=== PATIENT | female | born 1980 | race Caucasian/White ===

== ENCOUNTER 2024-07-01 07:29 | Emergency (ER) | payer OTHER ==
[2024-07-01 08:08] LABS: Absolute Basophils 0.1 K/uL (0-0.5); Absolute Eosinophils 0.1 K/uL (0-0.5); Absolute Lymphocytes (CBC) 2.1 K/uL (0.7-4.9); Absolute Monocytes 0.7 K/uL (0.1-1.3); Absolute Neutrophil 3.3 K/uL (1.8-8.0); Basophils % 0.8 % (0-1.3); Eosinophils % 1.1 % (0-4.4); Hematocrit 40.3 % (36.0-45.0); Hemoglobin 13.7 g/dL (12.0-15.0); Lymphocytes % 33.5 % (15.3-44.8); MCH 32.2 pg (27.0-35.0); MCHC 33.9 g/dL (32.0-36.0); MCV 94.9 fL (80-100); MPV 7.1 fL (7.6-11.3); Monocytes % 11.2 % (3.3-12.3); Neutrophils % 53.4 % (41.7-73.7); Nucleated Red Blood Cells % 0.1 % (0-0); Platelets 263 thou/uL (152-406); RBC Red Blood Cell Count 4.25 M/uL (3.86-4.86)
[2024-07-01 08:15] LABS: Specific Gravity 1.008 (1.005-1.030)
[2024-07-01 08:16] LABS: Specific Gravity 1.008 (1.005-1.030); Sqamous Epithelial None Seen /HPF (None Seen); Urine Bacteria None Seen /HPF (<20); Urine Bilirubin NEGATIVE (Negative); Urine Blood Negative (Negative); Urine Clarity Clear (Clear); Urine Color Colorless (Yellow); Urine Culture Reflex Order NOT NEEDED; Urine Glucose NEGATIVE (Negative); Urine Ketones NEGATIVE (Negative); Urine Micro Reflex YN NO BILL MICROSCOPIC; Urine Nitrite NEGATIVE (Negative); Urine Protein NEGATIVE (Negative); Urine RBC <5 /HPF (None Seen); Urine Urobilinogen Normal (Normal); Urine WBC <5 /HPF (<5); Urine pH 5.5 (5.0-7.0)
[2024-07-01 08:31] LABS: Albumin 3.8 g/dL (3.4-5.0); Anion Gap 7.7 mEq/L (5.0-15.0); Bilirubin Direct 0.2 mg/dL (0-0.2); Bilirubin Indirect, Calculated 0.6 mg/dL (0.2-0.8); Bilirubin Total 0.8 mg/dL (0.2-1.0); Globulin 3.9 g/dL (2.3-3.5); Potassium 3.7 mEq/L (3.5-5.1); Protein, Total 7.7 g/dL (6.4-8.2); Troponin High Sensitivity 3.3 pg/mL (<58.9)
--- NOTE | 2024-07-01 08:45 | RAD REPORT ---
EXAM DESCRIPTION: CT - Chest Abdomen Pelvis W Cont - 07/01/2024 8:25 am CLINICAL HISTORY: Chest and abdominal pain COMPARISON: none TECHNIQUE: Computed axial tomography of the chest, abdomen and pelvis was obtained. 100 cc Isovue-30 0 was administered intravenously. Oral contrast was not requested. This limits evaluation of bowel. All CT scans are performed using dose optimization technique as appropriate and may include automated exposure control or mA/KV adjustment according to patient size. FINDINGS: The lungs are clear No mediastinal or hilar lymphadenopathy. No pleural effusion. No pericardial effusion. Liver, spleen, pancreas, adrenals and kidneys are unremarkable No evidence of diverticulitis Abnormal appendix is not seen. No adnexal mass Tubal ligation coils are present IMPRESSION: No acute abnormality is displayed
[2024-07-01 08:50] LABS: PT Prothrombin Time 12.8 SECONDS (9.4-12.5); Protime INR 1.15
--- NOTE | 2024-07-01 08:50 | RAD REPORT ---
EXAM DESCRIPTION: Yoon Single View07/01/2024 8:04 am CLINICAL HISTORY: Chest pain COMPARISON: none FINDINGS: The lungs appear clear of acute infiltrate. The heart is normal size IMPRESSION: No acute abnormalities displayed
--- NOTE | 2024-07-01 08:57 | EDPHYS ---
Physician Documentation [facility] Name: Nadia Ortiz Age: 43 yrs Sex: Female : 1980 Arrival Date: 07/01/2024 Time: 07:29 Bed 13 Private MD: ED Physician Robe Cruz HPI: 07/01 07:58 This 43 yrs old Female presents to ER via Ambulatory with complaints of Chest Pressure, sp3 Back Pain. 07:58 43-year-old female with history of hyperlipidemia, hypothyroidism presents with a sp3 greater than 24-hour history of substernal chest pain radiating to the back and epigastric pain. Symptoms have led to increased belching. Patient states that this has not happened to her before. Positive family history of CABG and heart disease in the 50s on paternal side. Review of systems negative for fever, neck pain, shortness of breath, lower abdominal pain, lower back pain, syncope, near syncope, bleeding, diarrhea, vomiting, or any other signs or symptoms on ROS at this time. Patient is not on oral contraception, does not smoke, and has not had any prolonged immobilization or travel.. 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 - Infectious Disease History:: Denies. - Social history:: Smoking status: Patient denies any tobacco usage or history of. ROS: 08:08 Constitutional: Negative for fever, chills, and weight loss, Eyes: Negative for injury, sp3 pain, redness, and discharge, ENT: Negative for injury, pain, and discharge, Neck: Negative for injury, pain, and swelling, Respiratory: Negative for shortness of breath, cough, wheezing, and pleuritic chest pain, Back: Negative for injury and pain, : Negative for injury, bleeding, discharge, and swelling, MS/Extremity: Negative for injury and deformity, Skin: Negative for injury, rash, and discoloration, Neuro: Negative for headache, weakness, numbness, tingling, and seizure, Psych: Negative for depression, anxiety, suicide ideation, homicidal ideation, and hallucinations, Allergy/Immunology: Negative for hives, rash, and allergies, Endocrine: Negative for neck swelling, polydipsia, polyuria, polyphagia, and marked weight changes, 08:08 All other systems are negative, Exam: 08:11 Constitutional: This is a well developed, well nourished patient who is awake, alert, sp3 and in no acute distress. Head/Face: Normocephalic, atraumatic. Eyes: Pupils equal round and reactive to light, extra-ocular motions intact. Lids and lashes normal. Conjunctiva and sclera are non-icteric and not injected. Cornea within normal limits. Periorbital areas with no swelling, redness, or edema. ENT: Nares patent. No nasal discharge, no septal abnormalities noted. External auditory canals are clear. Oropharynx with no redness, swelling, or masses, exudates, or evidence of obstruction, uvula midline. Mucous membranes moist. Neck: Trachea midline, no thyromegaly or masses palpated, and no cervical lymphadenopathy. Supple, full range of motion without nuchal rigidity, or vertebral point tenderness. No Meningismus. Chest/axilla: Normal chest wall appearance and motion. Nontender with no deformity. No lesions are appreciated. Cardiovascular: Regular rate and rhythm with a normal S1 and S2. No gallops, murmurs, or rubs. Normal PMI, no JVD. No pulse deficits. Respiratory: Lungs have equal breath sounds bilaterally, clear to auscultation and percussion. No rales, rhonchi or wheezes noted. No increased work of breathing, no retractions or nasal flaring. Back: No spinal tenderness. No costovertebral tenderness. Full range of motion. Skin: Warm, dry with normal turgor. Normal color with no rashes, no lesions, and no evidence of cellulitis. MS/ Extremity: Pulses equal, no cyanosis. Neurovascular intact. Full, normal range of motion. Neuro: Awake and alert, GCS 15, oriented to person, place, time, and situation. Cranial nerves II-XII grossly intact. Motor strength 5/5 in all extremities. Sensory grossly intact. Cerebellar exam normal. Normal gait. Psych: Awake, alert, with orientation to person, place and time. Behavior, mood, and affect are within normal limits. 08:11 Abdomen/GI: Epigastric pain to palpation which also radiates up to the chest., 08:18 ECG was reviewed by the Attending Physician. EKG demonstrates normal sinus rhythm at 65 sp3 bpm with normal intervals, normal QRS, normal axis, nonspecific diffuse ST's ST changes without evidence of acute ischemia. Vital Signs: 07:51 Resp 16; Weight 88.45 kg; Height 5 ft. 4 in. ; iw 08:09 BP 117 / 65; Pulse 67; Resp 16 S; Temp 98(O); Pulse Ox 99% on R/A; kc6 08:59 BP 113 / 84; Pulse 64; Resp 16 S; Pulse Ox 100% on R/A; kc6 07:51 Body Mass Index 33.47 (88.45 kg, 162.56 cm) iw MDM: 07:35 Patient medically screened. sp3 08:12 Data reviewed: vital signs, nurses notes, lab test result(s), EKG, radiologic studies. sp3 ED course: 43-year-old female with PMH above now with epigastric pain and chest pain. Differential diagnosis is broad and includes ACS, vascular disease, biliary pathology, pancreatitis, gastritis, reflux, peptic ulcer disease, UTI/pyelonephritis spectrum, kidney stone, among others. Workup will include CT scan of the chest abdomen pelvis with IV contrast, laboratory values, urinalysis, EKG and general supportive care with disposition pending workup and patient course.. 08:54 ED course: Full workup negative including CT scan of the chest abdomen pelvis, all sp3 laboratory values, urine analysis. Symptoms likely due to GI/stomach pathology. Patient is already on Nexium OTC. Will switch to Protonix 40 mg daily coupled with Pepcid until she can follow-up with GI.. 07/01 07:40 Order name: Basic Metabolic Panel; Complete Time: 08:53 sp3 07/01 07:40 Order name: CBC with Diff; Complete Time: 08:53 sp3 07/01 07:40 Order name: LFT's; Complete Time: 08:53 sp3 07/01 07:40 Order name: Magnesium; Complete Time: 08:53 sp3 07/01 07:40 Order name: NT PRO-BNP; Complete Time: 08:53 sp3 07/01 07:40 Order name: PT-INR; Complete Time: 08:53 sp3 07/01 07:40 Order name: Troponin HS; Complete Time: 08:53 sp3 07/01 07:52 Order name: Lipase; Complete Time: 08:53 sp3 07/01 07:52 Order name: UAM; Complete Time: 08:53 sp3 07/01 07:52 Order name: Test, Urine; Complete Time: 08:53 sp3 07/01 07:40 Order name: XRAY Chest (1 view); Complete Time: 08:53 sp3 07/01 07:52 Order name: CT Chest, Abdomen, Pelvis - W/Contrast; Complete Time: 08:53 sp3 07/01 07:40 Order name: Cardiac monitoring; Complete Time: 08:08 sp3 07/01 07:40 Order name: EKG - Nurse/Tech; Complete Time: 08:08 sp3 07/01 07:40 Order name: IV Saline Lock; Complete Time: 08:08 sp3 07/01 07:40 Order name: Labs collected and sent; Complete Time: 08:08 sp3 07/01 07:40 Order name: O2 Per Protocol; Complete Time: 07:43 sp3 07/01 07:40 Order name: O2 Sat Monitoring; Complete Time: 07:43 sp3 Administered Medications: No medications were administered Disposition Summary: 07/01/24 08:56 Discharge Ordered Notes: Location: Home sp3 Condition: Stable sp3 Diagnosis - Abdominal pain, gastritis sp3 Followup: sp3 - With: Private Physician - When: Upon discharge from the Emergency Department - Reason: Continuance of care Discharge Instructions: - Discharge Summary Sheet sp3 - Abdominal Pain, Adult sp3 Forms: - Medication Reconciliation Form sp3 - Antibiotic Education sp3 - Prescription Opioid Use sp3 - Patient Portal Instructions sp3 - Leadership Thank You Letter sp3 Prescriptions: - Pepcid 20 mg Oral Tablet - take 1 tablet ORAL route every 12 hours for 10 days; 20 tablet; Refills: 0, sp3 Product Selection Permitted - Protonix 40 mg Oral Tablet - take 1 tablet ORAL route once daily; 30 tablet; Refills: 0, Product Selection sp3 Permitted Signatures: Dispatcher [employer] Jeni Gutierrez RN RN iw Patel, Setul, MD MD sp3 Corrections: (The following items were deleted from the chart) 07:41 07:41 BASIC METABOLIC PANEL+C.LAB.BRZ ordered. EDMS EDMS 07:41 07:41 CBC+H.LAB.BRZ ordered. EDMS EDMS 07:41 07:41 HEPATIC FUNCTION+C.LAB.BRZ ordered. EDMS EDMS 07:41 07:41 MAGNESIUM+C.LAB.BRZ ordered. EDMS EDMS 07:41 07:41 PROBNP+C.LAB.BRZ ordered. EDMS EDMS 07:41 07:41 PROTIME (+INR)+COAG.LAB.BRZ ordered. EDMS EDMS 07:41 07:41 Troponin High Sensitivity+C.LAB.BRZ ordered. EDMS EDMS 07:41 07:41 Chest Single View+RAD.RAD.BRZ ordered. EDMS EDMS 08:56 08:54 ED course: Full workup negative including CT scan of the chest abdomen pelvis, sp3 all laboratory values, urine analysis. Symptoms likely due to GI/stomach pathology. Patient is already on Nexium OTC. Will recommend additional Pepcid and follow-up with GI for repeat endoscopy as needed.. sp3
--- NOTE | 2024-07-01 08:57 | ER ---
Nurse's Notes [facility] Name: Nadia Ortiz Age: 43 yrs Sex: Female : 1980 Arrival Date: 07/01/2024 Time: 07:29 Bed 13 Private MD: Diagnosis: Abdominal pain, gastritis Presentation: 07/01 07:48 Chief complaint: Patient states: yesterday she felt a thumping sensation in her chest iw that lasted just a few minutes, she also felt clammy and sweaty, today she is still feeling pressure in her chest and gas , feels pressure in her upper back. Coronavirus screen: At this time, the client does not indicate any symptoms associated with coronavirus-19. Ebola Screen: No symptoms or risks identified at this time. Initial Sepsis Screen: Does the patient meet any 2 criteria? No. Patient's initial sepsis screen is negative. Does the patient have a suspected source of infection? No. Patient's initial sepsis screen is negative. Risk Assessment: Do you want to hurt yourself or someone else? Patient reports no desire to harm self or others. Onset of symptoms was June 30, 2024. 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 - Infectious Disease History:: Denies. - Social history:: Smoking status: Patient denies any tobacco usage or history of. Screenin:09 [facility] ED Fall Risk Assessment (Adult) History of falling in the last 3 months, kc6 including since admission No falls in past 3 months (0 pts) Confusion or Disorientation No (0 pts) Intoxicated or Sedated No (0 pts) Impaired Gait No (0 pts) Mobility Assist Device Used No (0 pt) Altered Elimination No (0 pt) Score/Fall Risk Level 0 - 2 = Low Risk. Abuse screen: Denies threats or abuse. Denies injuries from another. Nutritional screening: No deficits noted. Tuberculosis screening: No symptoms or risk factors identified. Assessment: 08:10 General: Appears in no apparent distress. comfortable, well groomed, well developed, kc6 Behavior is calm, cooperative, appropriate for age. Pain: Complains of pain in back and chest Pain does not radiate. Quality of pain is described as pressure, Pain began suddenly, Is intermittent. Neuro: Level of Consciousness is awake, alert, obeys commands, Oriented to person, place, time, situation, Appropriate for age. Cardiovascular: Reports chest pain, Heart tones S1 S2 present Capillary refill < 3 seconds Rhythm is sinus rhythm. Respiratory: Airway is patent Trachea midline Respiratory effort is even, unlabored, Respiratory pattern is regular, symmetrical. GI: Abdomen is flat, non-distended, Abd is soft X 4 quads Abdomen is tender to palpation in epigastric area and left upper quadrant Patient currently denies diarrhea, nausea, vomiting. : No signs and/or symptoms were reported regarding the genitourinary system. Urine is clear. EENT: No signs and/or symptoms were reported regarding the EENT system. Derm: No signs and/or symptoms reported regarding the dermatologic system. Skin is intact, is healthy with good turgor, Skin is pink, warm \T\ dry. Musculoskeletal: No signs and/or symptoms reported regarding the musculoskeletal system. Circulation, motion, and sensation intact. Capillary refill < 3 seconds, Range of motion: intact in all extremities. 08:59 Reassessment: Patient appears in no apparent distress at this time. No changes from kc6 previously documented assessment. Patient and/or family updated on plan of care and expected duration. Pain level reassessed. Patient is alert, oriented x 3, equal unlabored respirations, skin warm/dry/pink. Vital Signs: 07:51 Resp 16; Weight 88.45 kg; Height 5 ft. 4 in. ; iw 08:09 BP 117 / 65; Pulse 67; Resp 16 S; Temp 98(O); Pulse Ox 99% on R/A; kc6 08:59 BP 113 / 84; Pulse 64; Resp 16 S; Pulse Ox 100% on R/A; kc6 07:51 Body Mass Index 33.47 (88.45 kg, 162.56 cm) iw ED Course: 07:33 Patient arrived in ED. ra3 07:34 Robe Cruz MD is Attending Physician. sp3 07:37 Ashli Castellano RN is Primary Nurse. kc6 07:50 Triage completed. iw 07:51 Arm band placed on. iw 08:06 XRAY Chest (1 view) In Process Unspecified. EDMS 08:09 Patient has correct armband on for positive identification. Bed in low position. Call kc6 light in reach. Side rails up X 1. environmental monitoring technician on. Pulse ox on. NIBP on. Door closed. Noise minimized. Lights dimmed. Pillow given. 08:09 Inserted saline lock: 20 gauge in right antecubital area, using aseptic technique. kc6 Blood collected. Flushed with 10 mL NS. 08:27 CT Chest, Abdomen, Pelvis - W/Contrast In Process Unspecified. EDMS 09:08 No provider procedures requiring assistance completed. IV discontinued, intact, kc6 bleeding controlled, No redness/swelling at site. Pressure dressing applied. Patient maintains SpO2 saturation greater than 95% on room air. Administered Medications: No medications were administered Medication: 09:08 VIS not applicable for this client. kc6 Outcome: 08:56 Discharge ordered by . ana 09:08 Discharged to home ambulatory, kc6 09:08 Condition: good 09:08 Discharge instructions given to patient, Instructed on discharge instructions, follow up and referral plans. medication usage, Demonstrated understanding of instructions, follow-up care, medications, Prescriptions given X 2, 09:08 Patient left the ED. kc6 Signatures: Dispatcher [employer] Jeni Gutierrez, RN Robe Thakkar MD MD sp3 Ashli Castellano RN RN kc6 Lilo Taylor ra3
[2024-07-01 09:28] VITALS: TEMP 98
[2024-07-01 09:29] VITALS: BP 113/84; O2SAT 100
--- OUTSIDE RECORDS SUMMARY | 2024-07-02 09:22 | XMS REPORT | Continuity of Care Document ---
Author Name Unknown Address [address] [facility] [place] [address] [facility] Address [address] [facility] [address] [place] [address] Care Team Providers Care Pipe Organ Mechanic Name Role Phone CARLA KAUR Primary Care Physician Unavaila gabino RADIOLOGY Attending Clinician Unavailable Radiology Attending Clinician Unavailable SHAHNAZ REYES Attending Clinician Unavailable Shahnaz Reyes MD Attending Clinician [phone] Doctor Unassigned, [place] Attending Clinician U Earl Bonilla MD Attending Clinician [phone] Haroon PROGRAMMER ENGINEERING AND SCIENTIFICHaily eRid Attending Clinician [phone] Lab, Adc Fam Pob I Attending Clinician Unavailab anna Levin PROGRAMMER ENGINEERING AND SCIENTIFICEdith Attending Clinician [phone] Provider, [facility] Attending Clinician Un available Marina Trotter Attending Clinician [phone] MARINA MALHOTRA Attending Clinician Unavailable CARLA KAUR Admitting Clinician Unavailable SHAHNAZ REYES Admitting Clinician Unavailable Payers Payer Name Policy Type Policy Number Effective Date Expirati on Date Source [facility] PPO/POS [id number] 2021 00:00:00 Problems Condition Name Condition Details Condition Category Status Onset Date Resolution Date Last Treatment Date Treating Clinician Comments Source Obesity (BMI 30-39.9) Obesity (BMI 30-39.9) Disease Active 2020-11 00:00: 00 [facility] Allergies, Adverse Reactions, Alerts Allergy Name Allergy Type Status Severity Reaction(s) Onset Date Inactive Date Treating Clinician Comments Source NO KNOWN ALLERGIE S Drug Class Active [facility] Social History Social Habit Start Date Stop Date Quantity Comments Source History SDOH Alcohol Frequency [facility] History SDOH Alcohol Std Drinks [facility] History SDOH Alcohol Binge [facility] Gender identity [facility] intake 2023-01-17 00:00:00 2023-01-17 00:00:00 Current drinker of alcohol (finding) [facility] Exposure to SARS-CoV-2 (event) 2022-11-22 00:00:00 2022-12-02 11:25:00 Not sure [facility] Alcohol Comment 2021-09-21 00:00:00 2021-09-21 00:00:00 3-4 times a year [facility] History of Social function 2021-09-21 00:00:00 2021-09-21 00:00:00 [facility] Tobacco use and exposure 2020-04-28 00:00:00 2020-04-28 00:00:00 Smokeless tobacco non-user [facility] Sex Assigned At 1980 00:00:00 1980 00:00:00 [facility] Smoking Status Start Date Stop Date Source Never smoked tobacco [facility] Medications Ordered Medication Name Filled Medication Name Start Date Stop Date Current Medication? Ordering Clinician Indication Dosage Frequency Signature (SIG) Comments Components Source loratadine (CLARITIN ORAL) 12-03 12:24: 09 12-03 00:00 :00 No Take by mouth. [facility] Levothyroxi ne 88 mcg capsule 12-03 12:24: 06 12-03 00:00 :00 No Take by mouth. [facility] docosahexae noic acid/epa (FISH OIL ORAL) 12-03 08:49: 34 Yes Take by mouth. [facility] levothyroxi ne 112 mcg tablet 2021-11 00:00: 00 Yes TAKE 1 TABLET BY MOUTH EVERY DAY IN THE MORNING ON EMPTY STOMACH [facility] ibuprofen 600 mg tablet 03-14 00:00: 00 12-03 00:00 :00 No [id number] 600mg Take 1 tablet by mouth every 6 (six) hours as needed for Pain (scale 4-6). [facility] methocarbam oL (ROBAXIN) 500 mg tablet 03-14 00:00: 00 12-03 00:00 :00 No [id number] 500mg Take 1 tablet by mouth 4 (four) times daily. [facility] Levothyroxi ne 88 mcg capsule 04-28 09:59: 39 Yes Take by mouth. [facility] cyanocobala min, vitamin B-12, (VITAMIN B12 ORAL) 04-28 09:59: 39 Yes Take by mouth. [facility] aspirin 81 mg chewable tablet 04-28 09:59: 39 Yes 81mg Take 81 mg by mouth daily. [facility] Vital Signs Vital Name Observation Time Observation Value Comments S ource Body temperature 2022-12-03 14:42:00 36.89 Tuyet [facility] Respiratory rate 2022-12-03 14:42:00 18 /min [facility] Body height 2022-12-03 14:42:00 162.6 cm [facility] Body weight 2022-12-03 14:42:00 93.895 kg [facility] BMI 2022-12-03 14:42:00 35.53 kg/m2 [facility] Systolic blood pressure 2022-12-03 14:42:00 114 mm[Hg] [facility] Diastolic blood pressure 2022-12-03 14:42:00 74 mm[Hg] [facility] Heart rate 2022-12-03 14:42:00 65 /min [facility] Systolic blood pressure 2021-09-21 13:18:00 117 mm[Hg] [facility] Diastolic blood pressure 2021-09-21 13:18:00 78 mm[Hg] [facility] Heart rate 2021-09-21 13:18:00 80 /min [facility] Body temperature 2021-09-21 13:18:00 36.78 Tuyet [facility] Respiratory rate 2021-09-21 13:18:00 20 /min [facility] Body height 2021-09-21 13:18:00 162.6 cm [facility] Body weight 2021-09-21 13:18:00 90.084 kg [facility] BMI 2021-09-21 13:18:00 34.09 kg/m2 [facility] Oxygen saturation in Arterial blood by Pulse oximetry 2021-09-21 13:18:00 98 /min [place] [facility] Procedures Procedure Date / Time Performed Performing Clinician Source [facility] PATIENT FINANCIAL POLICY 2023-01-17 14:26:54 Doctor Unassigned, [place] [facility] US PELVIS COMPLETE WITH TRANSVAGINAL 2021-11-01 22:30:00 AdumShahnaz [facility] EXTERNAL PROVIDER RECORDS 2021-10-03 06:01:00 Doctor Unassigned, [place] [facility] Encounters Start Date/Time End Date/Time Encounter Type Admission Type Attending Clinicians Care Facility Care Department Encounter ID Source 2023-11-14 07:51:00 Outpatient [facility] [id number] [facility] 2022-02-20 09:58:02 Outpatient [facility] [id number] [facility] 2022-01-10 08:21:03 Outpatient [facility] [id number] [facility] 2021-09-16 15:45:28 Emergency [facility] [id number] [facility] 2024-03-08 09:11:08 2024-03-08 23:59:00 Outpatient R RADIOLOGY [facility] [id number] [facility] 2024-03-08 09:11:08 2024-03-08 23:59:00 Hospital Encounter Radiology [facility] [id number] 350.1.13.10 4.2.7.2.686 [id number] [facility] 2023-06-26 15:00:00 2023-06-26 23:59:00 Hospital Encounter Radiology [facility] [id number] 350.1.13.10 4.2.7.2.686 [id number] [facility] 2023-06-26 15:00:00 2023-06-26 23:59:00 Outpatient R RADIOLOGY [facility] [id number] [facility] 2023-01-17 08:27:29 2023-01-17 23:59:00 Outpatient R ADUM, [facility] [id number] [facility] 2023-01-17 08:20:00 2023-01-17 23:59:00 [facility] [id number] 350.1.13.10 4.2.7.2.686 [id number] [facility] 2022-12-16 00:00:00 2022-12-16 00:00:00 Telephone Adum Shahnaz Alan [facility] [id number] 350.1.13.10 4.2.7.2.686 [id number] [facility] 2022-12-03 08:15:00 2022-12-03 09:37:04 Outpatient R ADNYASIA, [facility] [id number] [facility] 2022-12-03 08:15:00 2022-12-03 09:37:04 Office Visit Adnyasia Shahnaz Phillips [facility] [id number] 350.1.13.10 4.2.7.2.686 [id number] [facility] 2022-11-05 15:00:00 2022-11-05 15:00:00 Outpatient R ADUM, [facility] [id number] [facility] 2022-10-22 00:00:2022-10-22 00:00:00 Patient Secure Msg Doctor Unassigned, [place] [facility] 1.2114 350.1.13.10 4.2.7.2.686 [id number] [facility] 2021-11-01 15:35:36 2021-11-01 23:59:00 Outpatient R VALORIESHAHNAZ MURRELL [facility] [id number] [facility] 2021-11-01 15:30:00 2021-11-01 23:59:00 Hospital Encounter nyasia [facility] 1.84.114 350.1.13.10 4.2.7.2.686 [id number] [facility] 2021-10-19 08:30:00 2021-10-19 08:30:00 Outpatient R KERI [facility] [id number] [facility] 2021-10-03 00:00:00 2021-10-03 00:00:00 Orders Only Doctor Unassigned, [place] [facility] 1.2114 350.1.13.10 4.2.7.2.686 [id number] [facility] 2021-09-21 08:08:28 2021-09-21 09:18:17 Office Visit KeriShahnaz [facility] 1.284.114 350.1.13.10 4.2.7.2.686 [id number] [facility] 2021-09-21 08:00:00 2021-09-21 09:18:17 Outpatient R KERI [facility] [id number] [facility] 2021-09-21 00:00:00 2021-09-21 00:00:00 Orders Only Doctor Unassigned, [place] [facility] 1.284.114 350.1.13.10 4.2.7.2.686 [id number] [facility] 2021-03-14 08:24:00 2021-03-14 10:23:00 Emergency Earl Rodriguez [facility] 1.0.114 350.1.13.10 4.2.7.2.686 [id number] [facility] 2020-06-04 00:00:00 2020-06-04 00:00:00 Telephone Haily Patiño [facility] [address] 1..114 350.1.13.10 4.2.7.2.686 [id number] [facility] 2020-06-03 10:27:42 2020-06-03 10:47:42 Laboratory Only Lab, Adc Fam Pob Edith Zaragoza [facility] [address] 1.114 350.1.13.10 4.2.7.2.686 [id number] [facility] 2020-06-03 10:40:00 2020-06-03 10:40:00 Outpatient R [facility] [id number] [facility] 2020-06-03 00:00:00 2020-06-03 00:00:00 Letter (Out) Doctor Unassigned, [place] [facility] 1.114 350.1.13.10 4.2.7.2.686 [id number] [facility] 2020-04-28 09:45:14 2020-04-28 10:05:14 Urgent Care Provider, [facility] Marina Malhotra [facility] [address] 1.114 350.1.13.10 4.2.7.2.686 [id number] [facility] 2020-04-28 09:40:00 2020-04-28 09:40:00 Outpatient R MARINA MALHOTRA [facility] [id number] [facility]
== END 2024-07-01 09:08 | disposition home or self-care (01) ==
LOC: ER 07:29
DX: K29.70 Gastritis, unspecified, without bleeding (principal); E03.9 Hypothyroidism, unspecified; E78.00 Pure hypercholesterolemia, unspecified
CPT/HCPCS: 93005; 85025; 81001; 80048; 36415; 83735; 81025; 85610; 80076; 84484; 83690; 83880; 71260; 74177; 71045; 99284; Q9967